=== PATIENT | male | born 1950 | race Caucasian/White ===

== ENCOUNTER 2019-03-23 09:54 | Observation (INO) | payer MEDICARE ==
[2019-03-23 12:16] LABS: Troponin I Less than 0.010 ng/mL (< 0.028)
--- NOTE | 2019-03-23 12:31 | HP ---
PRIMARY CARE PHYSICIAN: Dr. Carla Joiner. REASON FOR ADMISSION: Word-finding difficulty. HISTORY OF PRESENT ILLNESS: A 68-year-old male, who has underlying history of ischemic cardiomyopathy with AICD in place, who presented to [facility] Emergency Room because the patient was having word-finding difficulty. The patient reports that this morning around 05:00 a.m. when he woke up at that time, he personally felt like he was having difficulty talking, but he did not have any associated headache, facial asymmetry, or any paresthesia or weakness on either extremity. Around 07:00 a.m. when he woke up again at that time, he was also feeling similar way and that is why he was trying to talk to his , who noticed that the patient was having some word-finding difficulty, but the patient was aware of everything. He was not having any weakness. He was able to maintain his balance on both sides. He was not having any facial asymmetry. The patient was taken to local emergency room, where the patient had CT angiography of [place], which was not showing any acute process other than 60% left ICA stenosis. Routine blood test was unremarkable. The patient was not a candidate for any kind of intervention because he was only having word-finding difficulty and he was sent to our emergency room for evaluation. When I saw at that time, family member reports that he is appearing towards his baseline. REVIEW OF SYSTEMS: CONSTITUTIONAL: Negative for weight loss or gain, ability to conduct usual activities. SKIN: Negative for rash, itching. EYES: Negative for double vision, pain. ENT/MOUTH: Negative for nose bleeding, neck stiffness, pain, tenderness. CARDIOVASCULAR: Negative for palpitations, dyspnea on exertion, orthopnea. RESPIRATORY: Negative for shortness of breath, wheezing, cough, hemoptysis, fever or night sweats. GASTROINTESTINAL: Negative for poor appetite, abdominal pain, heartburn, nausea, vomiting, constipation, or diarrhea. GENITOURINARY: Negative for urgency, frequency, dysuria, nocturia. MUSCULOSKELETAL: Negative for pain, swelling. NEUROLOGIC/PSYCHIATRIC: Negative for anxiety, depression. ALLERGY/IMMUNOLOGIC: Negative for skin rash, bleeding tendency. Please see my HPI for pertinent positives and negatives. All other review of systems reviewed and negative except as mentioned in HPI. PAST MEDICAL HISTORY: 1. History of VT. 2. Coronary artery disease. 3. Ischemic heart disease. 4. Ischemic cardiomyopathy. 5. Chronic systolic heart failure with AICD in place. PAST SURGICAL HISTORY: Cardiac catheterization and stent placement, AICD placement. PAST PSYCHIATRIC HISTORY: Reviewed and negative. SOCIAL HISTORY: The patient is , lives at home with family. No history of tobacco, alcohol, or illicit drug abuse. FAMILY HISTORY: No strong family history of premature coronary artery disease, stroke, or cancer. ALLERGIES: BENICAR, OLMESARTAN. CURRENT HOME MEDICATIONS: 1. Ramipril 10 mg twice daily. 2. Spironolactone 25 mg daily. 3. Plavix 75 mg daily. 4. Lipitor 40 mg p.o. at bedtime. 5. Coreg 25 mg twice daily. 6. Aspirin 81 mg p.o. daily. EMERGENCY ROOM COURSE: The patient is given aspirin 325 mg. PHYSICAL EXAMINATION: VITAL SIGNS: Currently, blood pressure 142/78, pulse 53, respiratory rate 18, temperature 98.1, saturation 98% on room air. Weight 83.9 kg. GENERAL: The patient is currently alert, oriented, in no acute distress, slight bradycardia. HEENT: Head; normocephalic, atraumatic. Eyes; pupils are round, reactive to light. Extraocular muscles intact. ENT; oropharynx within normal limits. Moist mucous membranes. No oral lesion. No pharyngeal erythema. No exudate. NECK: Supple. No JVD. No thyromegaly. No carotid bruit. No jugular venous distention. LUNGS: Clear to auscultation without any rhonchi or rales. CARDIAC: S1, S2 appears regular. Slight bradycardia, but no murmur, no gallop, no rub. ABDOMEN: Soft. Bowel sounds present. Nontender. Nondistended. No organomegaly. No mass. No suprapubic tenderness. BACK: Unremarkable. No CVA tenderness. EXTREMITIES: Upper extremities, passive movement of all joints are normal. Lower extremities, no edema. Good distal pulsation. No calf tenderness. SKIN: No skin rash. HEMATOLOGICAL: No lymphadenopathy. PSYCHIATRIC: Normal affect. NEUROLOGIC: Nonfocal examination. The patient is alert and oriented x3. Cranial nerves 2 through 12 intact. Normal face. Normal motor examination in all 4 limbs. Normal sensory examination in all 4 limbs. Reflex is symmetrical. The patient only noticed that he may have little bit difficulty finding words, but other than that, his neurological examination is normal. SKIN: No skin rash. HEMATOLOGICAL: No lymphadenopathy. SIGNIFICANT LABORATORY DATA: CT of [place] showing 40%/60% stenosis of left ICA. CBC; WBC 4.8, hemoglobin 11.7, platelets 147. BMP; sodium 137, potassium 4.3, chloride 99, carbon dioxide 32, anion gap 10, BUN 17, creatinine 0.87, glucose 109, calcium 9.1. LFT; AST 17, ALT 13, alkaline phosphatase 48, albumin 3.7. BNP 95.4. Troponin-I less than 0.010. Urinalysis is normal. ASSESSMENT AND PLAN/IMPRESSION: 1. Transient ischemic attack. This patient only has problem with word-finding difficulty without any motor or sensory deficit. The patient has some carotid stenosis. At this point, the patient has AICD. We are not sure whether this is MRI compatible or not. We will consult Neurology and if his AICD is MRI compatible, then we will try to do MRI. We will also obtain echocardiography for evaluation, and we will do neuro check while in hospital. We will do cardiac enzyme to rule out ACS. We will check lipid profile tomorrow morning for risk stratification. We will observe neurologically and expecting discharge tomorrow. 2. Ischemic cardiomyopathy with chronic systolic heart failure. We will obtain echocardiography to assess EF and other structural abnormality. Currently, the patient is euvolemic. He will continue his home medication with Coreg and ramipril as well as Aldactone. 3. Dyslipidemia. Check lipid profile and continue Lipitor as per home dosage. 4. Hypertension. Continue Coreg and ramipril, Aldactone as per home dosage. 5. Sinus bradycardia. We will monitor on telemetry floor. We may need to reduce his Coreg dose if needed. Currently, the patient is asymptomatic with that. 6. Deep venous thrombosis prophylaxis not needed because we are expecting discharge in 24 hours. 7. Gastrointestinal prophylaxis, on Pepcid 20 mg p.o. b.i.d. CODE STATUS: The patient is full code. The patient's is surrogate decision maker. DISPOSITION PLAN: Based on above-mentioned investigation result. Plan of care discussed with the patient and family member at bedside. Job ID: [id number]
[2019-03-23] MEDS ORDERED: Loperamide HCl 2 MG CAP PO PRN (13:19)
[2019-03-23] MEDS ORDERED: HYDROcodone/Acetaminophen 5/325 mg Tablet PO PRN (13:19)
[2019-03-23] MEDS ORDERED: Acetaminophen 325 MG TAB PO PRN (13:19)
[2019-03-23] MEDS ORDERED: Calcium Carbonate 500 MG ChewTAB PO PRN (13:19)
[2019-03-23] MEDS ORDERED: Senokot S 8.6-50 MG TAB PO PRN (13:19)
[2019-03-23] MEDS ORDERED: Ondansetron PF 4 MG/2 ML Vial IVP PRN (13:19)
[2019-03-23] MEDS ORDERED: Zolpidem Tartrate 5 MG TAB PO PRN (13:19)
[2019-03-23] MEDS ORDERED: Ondansetron ODT 4 MG TAB PO PRN (13:19)
[2019-03-23] MEDS ORDERED: Bisacodyl 10 MG SUPP PR PRN (13:19)
[2019-03-23 13:28] VITALS: BMI 26.2
[2019-03-23 14:17] LABS: Troponin I 0.014 ng/mL (< 0.028)
[2019-03-23 20:04] LABS: Cardiac Risk 2.5 (Less than 4.5)
[2019-03-23] MEDS: Famotidine 20 MG TAB PO SCH (20:43)
[2019-03-23] MEDS: Ramipril 5 MG CAP PO SCH (20:43)
[2019-03-23] MEDS ORDERED: Atorvastatin Calcium 40 MG TAB PO SCH (21:00)
[2019-03-24] MEDS ORDERED: Melatonin 3 MG TAB PO PRN (00:52)
[2019-03-24 05:01] LABS: #Basophils 0.1 thou/uL (0.0-0.2); #Eosinphils 0.3 thou/uL (0.0-0.7); #Lymphocytes 2.4 thou/uL (1.20-3.40); #Monocytes 0.5 thou/uL (0.11-0.59); #Neutrophils 2.8 thou/uL (1.40-6.50); %Eosinophils 4.3 % (0.0-10.0); %Lymphocytes 39.4 % (21.0-51.0); %Monocytes 8.4 % (0.0-10.0); %Neutrophils 46.8 % (42.0-75.0); Hemoglobin 12.4 g/dL (14.0-18.0); Mean Corpuscular HGB CONC 33.7 g/dL (32.0-36.0); Mean Corpuscular Hemoglobin 31.8 pg (27.0-31.0); Mean Corpuscular Volume 94.3 fL (78.0-98.0); Mean Platelet Volume 9.3 fL (7.4-10.4); Platelet Count 137 thou/uL (130-400)
[2019-03-24 05:21] LABS: Anion Gap 12 mmol/L (10-20); BUN (Urea Nitrogen) 16 mg/dL (8.4-25.7); Calc. Creatinine Clearance 106 mL/min (70-130); Calcium 9.2 mg/dL (7.8-10.44); Carbon Dioxide 28 mmol/L (23-31); Cardiac Risk 2.5 (Less than 4.5); Chloride 102 mmol/L (98-107); Cholesterol 140 mg/dl (< 200 Desired); Estimated GFR-MDRD Greater than 90; Glucose 83 mg/dL (80-115); HDL Cholesterol 56 mg/dL (>60 Neg Risk); LDL Cholesterol, Calculated 74 mg/dL; Potassium 3.9 mmol/L (3.5-5.1); Sodium 138 mmol/L (136-145); Triglycerides 50 mg/dL (Less than 150)
[2019-03-24] MEDS ORDERED: Spironolactone 25 MG TAB PO SCH (08:00)
[2019-03-24] MEDS: Ramipril 5 MG CAP PO SCH (08:05)
[2019-03-24] MEDS: Famotidine 20 MG TAB PO SCH (08:07)
[2019-03-24] MEDS ORDERED: Clopidogrel Bisulfate 75 MG TAB PO SCH (09:00)
[2019-03-24] MEDS ORDERED: Aspirin 81 mg Enteric Coated Tablet PO SCH (09:00)
--- NOTE | 2019-03-24 10:02 | PDOC.PN ---
- Subjective Encounter Start Date: 03/24/19 Encounter Start Time: 09:30 Subjective: no complaints today, no overnight events -: states patient is close to baseline - Objective Resuscitation Status - Order Detail: 03/23/19 11:29 Resuscitation Status Routine Resuscitation Status: FULL: Full Resuscitation Vital Signs & Weight: Vital Signs (12 hours) Temp Pulse Resp BP BP Pulse Ox 03/24/19 09:49 101/78 03/24/19 08:05 108/71 03/24/19 08:00 98.1 F 49 L 20 106/68 96 03/24/19 04:21 99.0 F 50 L 14 99/65 95 03/23/19 23:55 98.4 F 97 18 97/59 L 97 Weight Weight 85.275 kg I&O: 03/23/19 03/24/19 03/25/19 06:59 06:59 06:59 Intake Total 840 Balance 840 Result Diagrams: 03/24/19 04:22 03/24/19 04:22 Phys Exam - Physical Examination HEENT: PERRLA, moist MMs Neck: no nodes, no JVD Respiratory: clear to auscultation bilateral Cardiovascular: RRR, no significant murmur Gastrointestinal: soft, non-tender Musculoskeletal: no edema, pulses present Neurological: normal sensation, moves all 4 limbs difficulty getting words out at times Psychiatric: normal affect, A&O x 3 Skin: no rash, normal turgor Dx/Plan (1) TIA (transient ischemic attack) Code(s): G45.9 - TRANSIENT CEREBRAL ISCHEMIC ATTACK, UNSPECIFIED Status: Acute (2) Hypertension Code(s): I10 - ESSENTIAL (PRIMARY) HYPERTENSION Status: Chronic (3) Hyperlipemia Code(s): E78.5 - HYPERLIPIDEMIA, UNSPECIFIED Status: Chronic (4) CAD (coronary artery disease) Code(s): I25.10 - ATHSCL HEART DISEASE OF [place] CORONARY ARTERY W/O ANG PCTRS Status: Chronic - Plan cont current plan of care, PT/OT Awaiting neurology -: Echo done, awaiting read -: PT/OT eval pending * .
[2019-03-24 15:50] VITALS: TEMP 98
--- NOTE | 2019-03-24 23:18 | CON ---
DATE OF CONSULTATION: 03/24/2019 CONSULTING PHYSICIAN: Hospitalist Services. IMPRESSION: 1. Minor stroke with expressive aphasia, which seems to be resolving. 2. Aspirin and Plavix failure. PLAN: 1. Consider switching over to Aggrenox versus anticoagulation depending on the patient's ejection fraction. 2. Follow up with Dr. Walters, next week. HISTORY OF PRESENT ILLNESS: Mr. Ortega is a 68-year-old male with a history of heart disease with a known ejection fraction between 30% to 35%. He has an AICD implanted. He has been on aspirin and Plavix. He presented with difficulty with word finding. There was no associated weakness. His CT scan did not reveal any evidence of ischemic or hemorrhagic change. CT angiogram showed somewhere between 40% to 60% left internal carotid stenosis. He has been compliant with statin. PAST HISTORY: Otherwise, hyperlipidemia, hypertension. ALLERGIES: BENICAR. SOCIAL HISTORY: No tobacco. FAMILY HISTORY: Noncontributory. REVIEW OF SYSTEMS: Ten system review of systems is otherwise negative. PHYSICAL EXAMINATION: VITAL SIGNS: Blood pressure 142/78, pulse 53, respirations 18, and temperature 98. HEENT: Pupils are equal and reactive. Conjunctivae clear. Oropharynx clear. Cranium, normocephalic and atraumatic. NECK: Supple. EXTREMITIES: No cyanosis. NEUROLOGIC: Alert and appropriate. His speech seems to be fluent and clear. There is no facial droop present. Motor exam shows good strength bilaterally. There is no fix or drift. Sensation is equal. Gait was not tested. No abnormal movements were seen. EKG shows sinus bradycardia. LABORATORY DATA: Laboratory studies were reviewed. SUMMARY: This gentleman appears to have suffered a minor stroke, which his symptoms are clearing at this point. I think a decision on his antiplatelet versus anticoagulation could be made next week by Dr. Walters. Job ID: [id number]
--- NOTE | 2019-03-25 12:14 | DIS ---
DATE OF ADMISSION: 03/23/2019 DATE OF DISCHARGE: 03/24/2019 CONSULTANTS: Dr. Ann. DISCHARGE DIAGNOSES: 1. Minor stroke with expressive aphasia, improving. 2. Ischemic cardiomyopathy with chronic systolic heart failure. 3. Dyslipidemia. 4. Hypertension. HOSPITAL COURSE: Mr. Ortega is a 68-year-old male, who reported to the emergency room in [place] after he was having difficulty finding words. He reports that on day of admission at 5:00 a.m., he woke up and felt like he was having difficulty with talking, and denied any associated headache, facial asymmetry, paresthesias, or weakness on either extremity. He went back to sleep around 7:00 a.m. later that day. He woke up again and noticed he was feeling similarly, and at that point, his noticed the word-finding difficulty as well. He denies any weakness. He is able to maintain his balance, not having any facial asymmetry. He was taken to the emergency room, where he had a CT ang[place] of [place], which did not show any acute process other than 60% left ICA stenosis. Dr. Ann was able to see the patient during this hospitalization and believes that he did have a minor stroke with some expressive aphasia. The patient is already on aspirin and Plavix. Echocardiogram was performed, but not read on the time of discharge. Dr. Ann and the patient discussed following up with Dr. Walters, patient's optical dispenser within the next week to discuss any changes to his anticoagulation regimen. The patient was anxious to return home. Dr. Ann agreed to this with the assurance that he would see his optical dispenser within the next week. The patient's vital signs remained stable. Labs stable. The patient was subsequently discharged to home. ALLERGIES: OLMESARTAN. MEDICATIONS: The patient's home medications were restarted: 1. Aspirin 81 mg p.o. daily. 2. Lipitor 20 mg p.o. at bedtime. 3. Coreg 25 mg p.o. b.i.d. 4. Plavix 75 mg p.o. daily. 5. Altace 10 mg p.o. b.i.d. 6. Spironolactone/hydrochlorothiazide 25/25 one tablet p.o. daily. REVIEW OF SYSTEMS: The patient reports that the difficulty with finding words is improving. Denies any weakness, numbness, or facial asymmetry. Denies any tingling. Denies any chest pain, shortness of breath, palpitations, or abdominal pain. All other systems are reviewed and are negative unless mentioned in the HPI. PHYSICAL EXAMINATION: VITAL SIGNS: Temperature 98, pulse is 54, respirations 20, PO2 saturations are 99% on room air, blood pressure 100/68. CONSTITUTIONAL: The patient appears nontoxic, appears pain free, is alert and oriented to person, place, and time. HEENT: Head is atraumatic and normocephalic. Eyes; eyelids are normal to inspection. Pupils are equally round and reactive to light. ENT; mouth exam is normal. Mucous membranes are moist. NECK: Normal range of motion. Trachea is midline. RESPIRATORY/CHEST: Breath sounds are clear. CARDIOVASCULAR: Regular heart rate and rhythm. Heart sounds are normal. ABDOMEN: Nontender. Bowel sounds are heard. BACK: Normal range of motion. No tenderness. EXTREMITIES: Upper extremity, inspection is normal. Range of motion is normal. Motor strength is normal. Sensation is intact. Radial pulses equal bilaterally. Lower extremity, normal inspection. Normal range of motion. Sensation intact. Pedal pulses equal bilaterally. NEURO: Speech with some minor expressive aphasia. No other acute deficits are noted. Cranial nerves 2 through 12 are intact. SKIN: Normal in color. PSYCH: Has a normal affect. The patient's condition is stable. The patient will be discharged to home. He should follow up with Dr. Joiner within 1 week. He should follow up with Dr. Walters within the next week. It is important to note that the patient's echocardiogram had not been read at the time of discharge and we will need to follow up with Dr. Walters to discuss the results and also discuss any changes to the anticoagulation regimen that the patient is currently on. Job ID: [id number]
[2019-03-26 06:39] VITALS: BP 103/60
== END 2019-03-24 18:06 | disposition home or self-care (01) ==
LOC: ERS 09:54 → 2SE 10:59 → INTOOBSV 10:59
PROVIDERS: ADMIT Internal Medicine; ATTEND Internal Medicine
DX: I63.9 Cerebral infarction, unspecified (principal); R47.01 Aphasia; I25.5 Ischemic cardiomyopathy; I11.0 Hypertensive heart disease with heart failure; I50.22 Chronic systolic (congestive) heart failure; I25.10 Atherosclerotic heart disease of native coronary artery without angina pectoris; I25.2 Old myocardial infarction; Z79.82 Long term (current) use of aspirin; Z79.899 Other long term (current) drug therapy; Z95.0 Presence of cardiac pacemaker
CPT/HCPCS: 80048; 80061 ×2; 84484; 85025; 93005; 93306; 97139 ×3; 99285; G0378 ×2; 36415

== ENCOUNTER 2023-11-20 11:22 | Outpatient (CLI) | payer MEDICARE ==
[2023-11-20 12:39] LABS: #Eosinphils 0.3 10x3/uL (0.0-0.5); #Monocytes 0.5 10x3/uL (0.0-1.1); #Neutrophils 4.3 10x3/uL (1.5-8.4); %Basophils 0.3 % (0.0-2.0); %Eosinophils 3.8 % (0.0-6.0); %Lymphocytes 34.1 % (18.0-47.0); %Monocytes 6.8 % (0.0-10.0); %Neutrophils 54.6 % (40.0-75.0); Hematocrit 40.5 % (38.8-50.0); Hemoglobin 13.4 g/dL (13.5-17.5); Mean Corpuscular HGB CONC 33.1 g/dL (32.0-36.0); Mean Corpuscular Hemoglobin 31.5 pg (27.0-33.0); Mean Corpuscular Volume 95.3 fl (81.2-95.1); Mean Platelet Volume 11.7 fl (7.4-10.4); Platelet Count 169 10x3/uL (150-450); Red Blood Cell (RBC) Count 4.25 10x6/uL (4.32-5.72); White Blood Cell (WBC) Count 7.8 10x3/uL (3.5-10.5)
[2023-11-20 12:50] LABS: ALT (SGPT) 17 U/L (8-55); AST (SGOT) 18 U/L (5-34); Alkaline Phosphatase 76 U/L (40-110); Anion Gap 13 mmol/L (10-20); BUN (Urea Nitrogen) 20 mg/dL (8.4-25.7); Bilirubin, Total 0.5 mg/dL (0.2-1.2); Calc. Creatinine Clearance 0 mL/min (70-130); Carbon Dioxide 28 mmol/L (23-31); Chloride 105 mmol/L (98-107); Estimated GFR 78; Globulin 2.3 g/dL (2.4-3.5); Glucose 110 mg/dL (83-110); Potassium 4.5 mmol/L (3.5-5.1); Protein, Total 6.3 g/dL (5.8-8.1); Sodium 141 mmol/L (136-145)
== END 2023-11-20 11:23 | disposition home or self-care (01) ==
LOC: LABBT 11:22
PROVIDERS: ATTEND Surgery
DX: Z01.812 Encounter for preprocedural laboratory examination (principal); K40.90 Unilateral inguinal hernia, without obstruction or gangrene, not specified as recurrent; L72.3 Sebaceous cyst
CPT/HCPCS: 80053; 85025